=== PATIENT | male | born 1970 | race Caucasian/White ===

== ENCOUNTER 2016-11-03 23:57 | Emergency (ER) | payer OTHER ==
--- NOTE | ~2016-11-03 | CR72 ---
[facility] A Service of [facility] RADIOLOGY TEXT RESULTS PATIENT: RENNY WASHINGTON LOCATION: [facility] : 72 UNIT #: [id number] AGE: [address]: Armond Escamilla MD SEX: M ORDER DR: [id number] [facility] [address] [place], [place] [address] [id number] MR#: [id number] Acc #: [id number] NAME: RENNY WASHINGTON : 1970 SEX: M STUDY DATE/TIME: 11/04/2016 0:28 UNIT: [facility] ROOM: STUDY DESCRIPTION: CR Chest Single View Portable Attending Physician: Armond Escamilla Ordering Physician: Ed Doctor [id number] [facility] Primary Care Physician: Primary Care Physician No MEDICAL IMAGING REPORT This report is preliminary unless electronic signature is present EXAM Portable AP view of the chest COMPARISON None INDICATIONS 46-year-old male found down with respiratory failure tonight. Suspected overdose. Endotracheal tube placement today. FINDINGS Endotracheal tube tip is slightly high-riding located approximately 6 cm above the kim. No evidence of pneumothorax or pleural effusion. Defibrillator pads are noted over the bilateral chest. Cardiomediastinal silhouette appears within normal limits. There is diffuse interstitial prominence throughout the lungs which may reflect mild interstitial edema. Aspiration is thought less likely. IMPRESSION 1. Endotracheal tube is high-riding approximately 6 cm above the kim. 2. Normal heart size with diffuse interstitial prominence throughout the lungs perhaps reflecting mild interstitial edema. It appears slightly asymmetric in the right upper lobe. Aspiration is thought less likely but not entirely excluded. Dictated by... Keith Kendall M.D. THIS IS AN ELECTRONICALLY VERIFIED REPORT Keith Kendall M.D. at 11/08/2016 7:36 AM Laura TD: 11/04/2016 07:54 [facility] A Service [facility] RADIOLOGY TEXT RESULTS PATIENT: RENNY WASHINGTON LOCATION: [facility] : 71 UNIT #: [id number] AGE: [address]: Armond Escamilla MD SEX: M ORDER DR: JOB #: [id number] MEDICAL IMAGING REPORT COPY
--- NOTE | ~2016-11-03 | CT71 ---
[facility] A Service of [facility] RADIOLOGY TEXT RESULTS PATIENT: RENNY WASHINGTON LOCATION: [facility] : 71 UNIT #: [id number] AGE: [address]: Armond Escamilla MD SEX: M ORDER DR: [id number] [facility] [address] [place], [place] [address] [id number] MR#: [id number] Acc #: [id number] NAME: RENNY WASHINGTON : 1970 SEX: M STUDY DATE/TIME: 11/04/2016 2:01 UNIT: [facility] ROOM: STUDY DESCRIPTION: CT Head Wo Contrast Ordering Physician: Sancho Dickson M.D. MEDICAL IMAGING REPORT This report is preliminary unless electronic signature is present EXAM CT head without IV contrast COMPARISON None. INDICATIONS 46-year-old male found down today post cardiopulmonary resuscitation and endotracheal intubation. Suspected overdose. Altered level of consciousness. TECHNIQUE This CT exam was performed with one or more of the following radiation dose reduction techniques: automatic exposure control, adjustment of mA and/or kV according to patient size, and iterative reconstruction. FINDINGS Shaker Tender topogram demonstrates the patient is endotracheally intubated. Exam is limited by patient motion. There appears to be mucosal thickening of the left maxillary sinus and sphenoid sinuses. No definite paranasal sinus air-fluid levels are seen. Mastoid air cells and middle ears appear to be well-aerated. Evaluation for fracture and ischemia is significantly limited by patient motion. No evidence of acute intracranial hemorrhage. The hammad-mesencephalic cisterns are completely effaced. There is near complete effacement of the fourth ventricle. The suprasellar cistern is completely effaced and there is near completement of effacement of the lateral ventricles. No evidence of acute intracranial hemorrhage or abnormal extraaxial fluid collection. The cerebral sulci are completely effaced and there is diffuse loss of gutiérrez-white matter differentiation in the brain and cerebellum. IMPRESSION [facility] A Service of [facility] RADIOLOGY TEXT RESULTS PATIENT: RENNY WASHINGTON LOCATION: [facility] : 72 UNIT #: [id number] AGE: [address]: Armond Escamilla MD SEX: M ORDER DR: Exam is significantly by motion. However, the sulci appear to be completely effaced throughout the brain and gutiérrez-white matter differentiation cannot be seen anywhere in the brain or within the cerebellum and there is complete effacement of the suprasellar cistern and the hammad-mesencephalic cisterns with near complete effacement of the fourth ventricle and the lateral ventricles. Findings are highly suggestive of diffuse global ischemia with severe brain edema and uncal herniation. Dictated by... Keith Kendall M.D. THIS IS AN ELECTRONICALLY VERIFIED REPORT Keith Kendall M.D. at 11/08/2016 7:41 AM RENETTA/komal TD: 11/04/2016 09:20 JOB #: [id number] MEDICAL IMAGING REPORT COPY
--- NOTE | ~2016-11-03 | EKG ---
PATIENT: RENNY WASHINGTON UNIT #: [id number] Ventricular Rate: 107 BPM Atrial Rate: 107 BPM P-R Interval: 160 ms QRS Duration: 96 ms Q-T Interval: 346 ms QTC Calculation(Bezet): 461 ms P [place]: 64 degrees Calculated R [place]: 52 degrees Calculated T [place]: 6 degrees Diagnosis Line: Sinus tachycardia Diagnosis Line: Otherwise normal ECG Diagnosis Line: No previous ECGs available Diagnosis Line: Confirmed by ANGEL ARIAS MD ([id number]) on Diagnosis Line: 11/05/2016 10:36:30 PM INTERPRETING MD: EVETTE
[2016-11-03 23:49] LABS: ARTERIAL BLD GAS O2 SATURATION 93.7 % (90.0-100.0); ARTERIAL BLOOD GAS CARBOXY HB 4.7 %sat (0.0-9.0); ARTERIAL BLOOD GAS HCO3 16.9 mmol/L; ARTERIAL BLOOD GAS MET HB 1.1 %sat (0.0-2.0)
[2016-11-03 23:51] LABS: ARTERIAL BLOOD GAS ALLEN TEST NORMAL; ARTERIAL BLOOD GAS ART SITE LEFT RADIAL; ARTERIAL BLOOD GAS DELIVERY VENT; ARTERIAL BLOOD GAS VENT MODE AC; ARTERIAL BLOOD GAS pH 7.074 (7.350-7.450); ARTERIAL DRAW? YES
[2016-11-04 00:59] LABS: ARTERIAL BLD GAS O2 SATURATION 95.2 % (90.0-100.0); ARTERIAL BLOOD GAS HCO3 14.5 mmol/L; ARTERIAL BLOOD GAS MET HB 0.6 %sat (0.0-2.0); ARTERIAL BLOOD GAS PCO2 33.8 mmHg (35.0-45.0)
[2016-11-04 01:01] LABS: ARTERIAL BLOOD GAS ALLEN TEST NORMAL; ARTERIAL BLOOD GAS ART SITE LEFT RADIAL; ARTERIAL BLOOD GAS DELIVERY VENT; ARTERIAL BLOOD GAS VENT MODE AC; ARTERIAL DRAW? YES
[2016-11-04 02:00] LABS: ALBUMIN SERUM 4.3 g/dL (3.5-5.0); ALKALINE PHOSPHATASE 124 U/L (32-92); ALT (SGPT) 149 U/L (10-40); AST (SGOT) 182 U/L (10-42); BILIRUBIN, DIRECT 0.2 mg/dL (0.0-0.2); BILIRUBIN,INDIRECT 0.6 mg/dL (0.0-0.9); BILIRUBIN,TOTAL 0.8 mg/dL (0.2-2.0); BLOOD UREA NITROGEN 15 mg/dL (9-23); BUN/CREATININE RATIO 10.71; CALCIUM SERUM 8.3 mg/dL (8.4-10.2); CARBON DIOXIDE 16 mmol/L (22-31); CHLORIDE 101 mmol/L (100-111); CREATININE SERUM 1.4 mg/dL (0.6-1.4); GLOM FILT RATE Estimated 58.2 mL/min (>60); GLUCOSE FASTING 235 mg/dL (70-110); POTASSIUM 4.3 mmol/L (3.5-5.1); PROTEIN TOTAL SERUM 8.8 g/dL (6.0-8.3); SODIUM 134 mmol/L (135-145)
[2016-11-04 02:11] LABS: SALICYLATE <4.0 mg/dL
[2016-11-04 02:13] LABS: ACETAMINOPHEN <10 ug/mL; ALCOHOL BLOOD <5 mg/dL (0)
[2016-11-04 03:46] LABS: BASOPHIL# 0.2 X10e3 (0-0.3); BASOPHIL% 0.9 % (0-2.5); EOSINOPHIL# 0.1 X10e3 (0-0.7); EOSINOPHIL% 0.5 % (0.0-7.0); HEMATOCRIT 43.7 % (38.0-50.0); HEMOGLOBIN 14.4 gm/dL (13.0-16.0); LYMPHOCYTE# 4.7 X10e3 (1.0-3.5); LYMPHOCYTE% 22.4 % (17.0-45.0); MEAN CELL VOLUME 87.4 FL (83-96); MEAN CORPUSCULAR HEMOGLOBIN 28.9 PG (28-34); MEAN CORPUSCULAR HGB CONC 33.1 g/dL (30-36); MONOCYTE# 0.4 X10e3 (0-1.0); MONOCYTE% 2.1 % (3.0-12.0); NEUTROPHIL# 15.4 X10e3 (1.5-7.1); NEUTROPHIL% 74.1 % (40-75); PLATELET COUNT 382 X10e3 (140-420); RED BLOOD COUNT 4.99 X10e (3.90-5.60); RED CELL DISTRIBUTION WIDTH 16.1 % (11.0-15.5); WHITE BLOOD COUNT 20.8 X10e3 (4.0-10.5)
[2016-11-04 03:47] LABS: DIFF IND YES
[2016-11-04 04:03] LABS: AMPHETAMINE POS (NEG); BARBITURATES NEG (NEG); BENZODIAZEPINES NEG (NEG); COCAINE NEG (NEG); MARIJUANA NEG (NEG); OPIATES POS (NEG); TRICYCLIC ANTIDEPRESSANTS NEG (NEG); U METHADONE NEG (NEG)
[2016-11-04 04:06] LABS: POC - CKMB 20.2 ng/mL (0.0-7.9); POC - TROPONIN 0.21 ng/mL (<=0.05)
[2016-11-04 04:07] LABS: PLATELET ESTIMATE NORMAL (NORMAL)
[2016-11-04 04:08] LABS: ANISOCYTOSIS SL
[2016-11-04 04:11] LABS: POC - CKMB 32.7 ng/mL (0.0-7.9); POC - TROPONIN 1.2 ng/mL (<=0.05)
== END 2016-11-04 05:19 | disposition hospice, home (50) ==
LOC: CED 23:57
PROVIDERS: Emergency Medicine
DX: T40.1X1A Poisoning by heroin, accidental (unintentional), initial encounter (principal)
CPT/HCPCS: 36415; 36600; 51702; 70450; 71010; 80048; 80076; 80307; 82553; 82803; 84484; 85025; 93005; 94002; 96374; 96375; 99291; G0480; J1953; J2060